=== PATIENT | female | born 1965 | race Caucasian/White ===

== ENCOUNTER 2018-11-28 16:32 | Emergency (ER) | payer MEDICAID ==
[~2018-11-28] VITALS: Ht 157.5 cm; Wt 52.2 kg
--- NOTE | 2018-11-28 16:49 | NUR ---
BIB [facility], PT AGITATED, PERSONNEL FROM MENTAL [facility]ALTH AT BEDSIDE, TO ER BED 7,PACING BACK AND FORTH IN ROOM, AWAITING MD SCHMITT
--- NOTE | 2018-11-28 16:52 | NUR ---
DR CULVER AT BEDSIDE FOR EVAL
--- NOTE | 2018-11-28 16:55 | NUR ---
SECURITY AT BEDSIDE
[2018-11-28] MEDS ORDERED: diphenhydrAMINE HCL 50 MG/ML VIAL ONE (17:17)
[2018-11-28] MEDS ORDERED: OLANZAPINE 10 MG VIAL IM ONE ×2 (17:17→17:30)
[2018-11-28 17:21] LABS: BASOPHILS # (AUTO) 0.1 /CMM (0.0-0.2); BASOPHILS % (AUTO) 1.4 % (0.0-2.0); EOSINOPHILS % (AUTO) 2.5 % (0.0-6.0); HEMATOCRIT 39 % (33-45); HEMOGLOBIN 12.9 g/dL (11.5-14.8); LYMPHOCYTES # (AUTO) 1.7 /CMM (0.8-4.8); LYMPHOCYTES % (AUTO) 25.6 % (20.0-44.0); MEAN CORPUSCULAR HGB CONC 34 g/dl (31.0-36.0); MEAN CORPUSCULAR VOLUME 97 fL (82-100); MONOCYTES # (AUTO) 0.5 /CMM (0.1-1.30); MONOCYTES % (AUTO) 7.3 % (2.0-12.0); NEUTROPHILS # (AUTO) 4.3 /CMM (1.8-8.9); NEUTROPHILS % (AUTO) 63.2 % (43.0-81.0); PLATELET COUNT (AUTO) 236 /CMM (150-450); WHITE BLOOD COUNT (AUTO) 6.8 K/uL (4.3-11.0)
[2018-11-28] MEDS ORDERED: LORAZEPAM INJ 2 MG/ML VIAL IM ONE (17:30)
[2018-11-28] MEDS ORDERED: diphenhydrAMINE HCL 50 MG/ML VIAL IM ONE (17:30)
[2018-11-28] MEDS ORDERED: LORAZEPAM INJ 2 MG/ML VIAL ONE (17:31)
--- NOTE | 2018-11-28 17:32 | NUR ---
BOW REHAIRER: (SON) [phone]
[2018-11-28 17:33] LABS: CALCIUM, SERUM 8.9 mg/dL (8.5-10.1); CARBON DIOXIDE 28 mmol/L (21-32); CHLORIDE 102 mmol/L (98-107); CREATININE 0.7 mg/dL (0.6-1.3); GLUCOSE 96 mg/dL (74-106); POTASSIUM 3.9 mmol/L (3.5-5.1); SODIUM SERUM 138 mmol/L (136-145); UREA NITROGEN, BLOOD 12 mg/dL (7-18)
[2018-11-28 17:36] LABS: APPEARANCE,URINE Clear (CLEAR); BILIRUBIN,URINE Negative (NEGATIVE); BLOOD, URINE Moderate Ery/uL (NEGATIVE); COLOR,URINE Yellow (YELLOW); KETONES,URINE Trace (NEGATIVE); LEUKOCYTE ESTERASE ,URINE Negative (NEGATIVE); NITRITE, URINE Negative (NEGATIVE); PROTEIN,URINE Negative (NEGATIVE); UGLUCOSE Negative (NEGATIVE); UROBILINOGEN,URINE 0.2 EU/dL (0.2)
[2018-11-28 17:47] LABS: ACETAMINOPHEN 0 ug/ml (10-30); ALANINE AMINOTRANSFERASE 16 U/L (12-78); ALCOHOL, BLOOD < 3 mg/dL (0-0); ALKALINE PHOSPHATASE 76 U/L (46-116); ASPARTATE AMINOTRANSFERASE 21 U/L (15-37); BILIRUBIN,DIRECT 0.1 mg/dL (0.0-0.2); BILIRUBIN,TOTAL 0.4 mg/dL (0.2-1.0); SALICYLATE 3.7 mg/dL (2.8-20.0); TOTAL PROTEIN, SERUM 7.8 g/dL (6.4-8.2)
--- NOTE | 2018-11-28 18:04 | NUR ---
PT CALMER, SITTING AT SIDE OF BED, WILL CONTINUE TO MONITOR, KEPT SAFE AND COMFORTABLE
[2018-11-28 18:11] LABS: WBC,URINE 0-2 /HPF (0-3)
[2018-11-28 18:12] LABS: BACTERIA,URINE 1+ /HPF (None Seen); SQUAMOUS EPITHELIAL CELL,UR Few /HPF (None Seen)
--- NOTE | 2018-11-28 18:16 | NUR ---
SPOKE TO COMMERCIAL ROOFING ESTIMATOR TEST ENGINE MECHANIC. SHE SAID SHE WOULD ARRIVE IN AN HOUR
--- NOTE | 2018-11-28 18:43 | NUR ---
PT IN BED COMFORTABLY ASLEEP. HOOKED TO MONITOR. WILL CONTINUE TO MONITOR.
--- NOTE | 2018-11-28 19:15 | NUR ---
SITTER AT BEDSIDE
--- NOTE | 2018-11-28 19:16 | NUR ---
PIPE COVERER AND INSULATOR PINKY AT BEDSIDE
--- NOTE | 2018-11-28 21:06 | NUR ---
PT IN BED COMFORTABLE, ASLEEP, HOOKED TO MONITOR, KEPT WARM, COMFORTABLE AND SAFE. SITTER AT BEDSIDE, WILL CONTINUE TO MONITOR
--- NOTE | 2018-11-28 23:42 | NUR ---
PT IN BED COMFORTABLY ASLEEP, HOOKED TO MONITOR, VSS, KEPT WARM AND SAFE. SITTER AT BEDSIDE.
--- NOTE | 2018-11-29 00:29 | NUR ---
REPORT GIVEN TO SG ROLDAN FOR DEE DEE
--- NOTE | 2018-11-29 05:33 | NUR ---
CALLED GINA SALGADO, SHE WILL BE HERE SHORTLY
[2018-11-29] MEDS ORDERED: OLANZAPINE 5 MG TABLET ONE (05:47)
[2018-11-29] MEDS ORDERED: OLANZAPINE 5 MG TABLET PO ONE (06:00)
--- NOTE | 2018-11-29 07:33 | NUR ---
PT HAS SITTER AT BEDSIDE FROM MAGAZINE GRINDER LOADER BUT IS LEAVING NOW. ATTEMPTED TO TAKE VITAL SIGNS BUT REFUSES BLOOD PRESSURE STATING IT HURTS. PT RAMBLING INCIHERENTLY AT WALL AND LOOKING AROUND YELLING AT THE AIR. PT OFFERED FOOD AND ACCEPTED WILL CALL DIETARY FOR BREAKFAST SISTER HAS NOT RETURNED CALL.
--- NOTE | 2018-11-29 08:13 | NUR ---
patient denies SI/HI at this time.
--- NOTE | 2018-11-29 08:18 | NUR ---
Spoke to CJ son, per CJ he is currently unable to brain picker pt - lives in [place]. sister lives in [place] and he is currently trying to contact her. [phone]
[2018-11-29] MEDS ORDERED: LORAZEPAM INJ 2 MG/ML VIAL ONE (08:51)
--- NOTE | 2018-11-29 08:57 | NUR ---
social worker delinquency prevention team speaking with pt at this time.
[2018-11-29] MEDS ORDERED: LORAZEPAM INJ 2 MG/ML VIAL IM ONE (09:00)
--- NOTE | 2018-11-29 09:39 | NUR ---
Patient seen by case management. Patient a/ox3, breathing even and unlabored, no distress. Patient discharged to home in no distress. Written and verbal after care instructions given. Patient verbalizes understanding of instruction. Tap card provided patient verbalized she's going to her sister's house. Refused clothes and given food for breakfast. Tried to contact the sister multiple times with no answer. Patient left in stable condition.
[2018-11-29 09:50] VITALS: BP 116/72
== END 2018-11-29 09:53 | disposition home or self-care (01) ==
LOC: ER 16:35
DX: R46.2 Strange and inexplicable behavior (principal); R45.1 Restlessness and agitation
CPT/HCPCS: 36415; 80048; 80076; 80305; 80307; 80329; 81001; 85025; 96372 ×4; 99285; G0480; J1200; J2060 ×2; J3490; 81000-TC

== ENCOUNTER 2018-11-30 09:59 | Emergency (ER) | payer MEDICAID ==
[~2018-11-30] VITALS: Ht 157.5 cm; Wt 52.2 kg
--- NOTE | 2018-11-30 10:10 | NUR ---
PT BIBRA TO ER BED 07, PER REPORT, WANDERING THE STREETS. PT WAS SEEN AND DISCHARGE HERE YESTERDAY. PT ANSWERS TO BASIC QUESTIONS. DENIES SI/HI. ON MONITOR W/ STABLE VITALS. AWAITING MD SCHMITT.
--- NOTE | 2018-11-30 10:14 | NUR ---
DR MARCOS AT BEDSIDE FOR EVAL.
--- NOTE | 2018-11-30 10:23 | NUR ---
IV LINE STARTED BLOOD DRAWN AND SENT TO LAB.
[2018-11-30 10:28] LABS: BASOPHILS # (AUTO) 0.1 /CMM (0.0-0.2); BASOPHILS % (AUTO) 0.9 % (0.0-2.0); EOSINOPHILS % (AUTO) 0.6 % (0.0-6.0); HEMATOCRIT 39 % (33-45); HEMOGLOBIN 12.7 g/dL (11.5-14.8); LYMPHOCYTES % (AUTO) 11.2 % (20.0-44.0); MEAN CORPUSCULAR HGB CONC 33 g/dl (31.0-36.0); MEAN CORPUSCULAR VOLUME 97 fL (82-100); MONOCYTES # (AUTO) 0.5 /CMM (0.1-1.30); MONOCYTES % (AUTO) 5.9 % (2.0-12.0); NEUTROPHILS # (AUTO) 7.4 /CMM (1.8-8.9); NEUTROPHILS % (AUTO) 81.4 % (43.0-81.0); PLATELET COUNT (AUTO) 222 /CMM (150-450); RED BLOOD CELL COUNT(AUTO) 3.99 MIL/uL (4.0-5.2); WHITE BLOOD COUNT (AUTO) 9.1 K/uL (4.3-11.0)
[2018-11-30] MEDS ORDERED: IV NS 0.9% 1,000 ML BAG IV ONE (10:30)
[2018-11-30 10:42] LABS: ALANINE AMINOTRANSFERASE 18 U/L (12-78); ALCOHOL, BLOOD < 3 mg/dL (0-0); ALKALINE PHOSPHATASE 64 U/L (46-116); ASPARTATE AMINOTRANSFERASE 36 U/L (15-37); BILIRUBIN,DIRECT 0.1 mg/dL (0.0-0.2); BILIRUBIN,TOTAL 0.7 mg/dL (0.2-1.0); CARBON DIOXIDE 24 mmol/L (21-32); CHLORIDE 103 mmol/L (98-107); CREATININE 0.5 mg/dL (0.6-1.3); GLUCOSE 84 mg/dL (74-106); SALICYLATE 4.2 mg/dL (2.8-20.0); SODIUM SERUM 137 mmol/L (136-145); TOTAL PROTEIN, SERUM 7.6 g/dL (6.4-8.2); UREA NITROGEN, BLOOD 19 mg/dL (7-18)
[2018-11-30 10:43] LABS: ACETAMINOPHEN < 2 ug/ml (10-30)
[2018-11-30 11:45] LABS: APPEARANCE,URINE Cloudy (CLEAR); BILIRUBIN,URINE Negative (NEGATIVE); BLOOD, URINE Moderate Ery/uL (NEGATIVE); COLOR,URINE Red (YELLOW); KETONES,URINE 40 (NEGATIVE); LEUKOCYTE ESTERASE ,URINE Negative (NEGATIVE); NITRITE, URINE Negative (NEGATIVE); PH,URINE 5.5 (5.0-8.0); PROTEIN,URINE 100 mg/dl (NEGATIVE); UGLUCOSE Negative (NEGATIVE); UROBILINOGEN,URINE 0.2 EU/dL (0.2)
[2018-11-30 11:53] LABS: BACTERIA,URINE Few /HPF (None Seen); RBC,URINE TOO NUMEROUS TO COUN /HPF (0-2); SQUAMOUS EPITHELIAL CELL,UR Few /HPF (None Seen); WBC,URINE 0-2 /HPF (0-3)
--- NOTE | 2018-11-30 12:11 | NUR ---
CALLED AND SPOKE WITH [employer] CRISIS ETCHER MACHINE. ETA 1HR.
--- NOTE | 2018-11-30 16:16 | NUR ---
EPIC BILLING CUSTOMER SERVICE REPRESENTATIVE PAGED VIA ALIDA LARRY
--- NOTE | 2018-11-30 18:30 | NUR ---
Patient is resting comfortably in bed with eyes closed. Easily aroused. VSS
--- NOTE | 2018-12-01 09:48 | NUR ---
CALLED [phone] LOOKING FOR VAISHNAVI NEW NUMBER IS [phone] LEFT A MSG.
--- NOTE | 2018-12-01 10:17 | NUR ---
JONATHAN contacted pt's sister Yaritza and left her a voicemail message requesting a call back. JAMAR Hernandez (case management) checked with pt's insurance regarding placement, however JAMAR Hernandez was informed by [facility] for [facility] insurance that since pt. is capitated to [facility] they will not be able to assist in placing the pt.
--- NOTE | 2018-12-01 11:31 | NUR ---
JONATHAN met with pt. bedside to inquire if she receives SSI. Pt. is alert and oriented x 2. Pt. appears confused at times. Pt. states she does receive SSI but is not able to to tell SW the amount. JONATHAN inquire with pt. where she resides and pt. tatiana Hortencia brenton but is not able to provide any further information. JONATHAN contacted [facility] in [place] that brought the pt. to [facility] ER and left. JONATHAN spoke with Iman who informed JONATHAN that pt. was most likely dropped off by the [facility] and to contact program lead Deonte at x [phone]. JONATHAN left a voicemail message for Deonte requesting a call back [facility].
--- NOTE | 2018-12-01 12:35 | NUR ---
JONATHAN called pt's grandson DAVID informing him that SW has been trying to get hold of pt's sister Yaritza, however she is not returning any calls. JONATHAN informed DAVID that pt. has been ready for discharge since last night. DAVID informed SW that he is trying to get pt. into a rehab. facility and if that does not work, he will miner pick the pt. DAVID will be coming from [place]. He will follow up with JONATHAN as soon as he has found placement.
--- NOTE | 2018-12-01 14:37 | NUR ---
JONATHAN contacted [facility] in [place] and left a second message for [facility] robot programmer Deonte at x [phone]. Addendum: 12/01/18 at 1437 by FLACO CASTILLO [facility]
--- NOTE | 2018-12-01 16:07 | NUR ---
JONATHAN called pt's grandson DAVID again to verify placement. CJ informed SW that his might have found a place and will call back. SW informed him to contact the ER since SW will be leaving shortly. JONATHAN contacted ED and updated LIZZETH Pettit and JAMAR Guzman with updated information.
--- NOTE | 2018-12-01 17:55 | NUR ---
called CJ (son) and per CJ he is going to lease picker her mom, he is just borrowing his cousin's car and put a fuel.
--- NOTE | 2018-12-01 19:24 | NUR ---
endorsed to v for siena. Patient sleeping at this time, in no apparent distress noted.
--- NOTE | 2018-12-01 20:13 | NUR ---
SON BEDSIDE WITH PT.
[2018-12-01 20:20] VITALS: BP 132/70
--- NOTE | 2018-12-01 20:20 | NUR ---
Patient discharged to son to go home in stable condition. Written and verbal after care instructions given. Patient verbalizes understanding of instruction. Pt ambulated with steady gait noted. No S/S of distress noted upon discharge
== END 2018-12-01 20:22 | disposition home or self-care (01) ==
LOC: ER 09:59
DX: R41.82 Altered mental status, unspecified (principal); Z88.0 Allergy status to penicillin
CPT/HCPCS: 36415; 80048; 80076; 80305; 80307; 80329; 81001; 85025; 87081; 96360; 99284; G0480; J7030; 81000-TC